=== PATIENT | female | born 1955 | race Native Hawaiian/Other Pacific Islander ===

== ENCOUNTER 2016-07-25 13:53 | Outpatient (CLI) | payer BC, OTHER | END 2016-07-25 15:00 | disposition home or self-care (01) | LOC: RESP 13:53 | DX: R06.02 Shortness of breath (principal) ==

== ENCOUNTER 2017-09-14 10:49 | Outpatient (CLI) | payer BC, OTHER ==
[2017-09-14 11:14] LABS: PLATELET COUNT 139 K/uL (152-353)
[2017-09-14 11:25] LABS: POTASSIUM 4.1 mmol/L (3.6-5.2)
== END 2017-09-14 19:38 | disposition home or self-care (01) ==
LOC: LAB 10:49
PROVIDERS: Emergency Medicine Undersea and Hyperbaric Medicine
DX: S80.01XD Contusion of right knee, subsequent encounter (principal); E11.628 Type 2 diabetes mellitus with other skin complications
CPT/HCPCS: 80053; 80202; 85027; 85651

== ENCOUNTER 2020-04-04 13:01 | Outpatient (CLI) | payer BC, OTHER | END 2020-04-04 19:41 | disposition home or self-care (01) | LOC: INF 13:01 | PROVIDERS: ATTEND Internal Medicine Endocrinology, Diabetes & Metabolism | DX: Z23 Encounter for immunization (principal) | CPT/HCPCS: 96372 ==

== ENCOUNTER 2020-05-01 15:19 | Outpatient (CLI) | payer BC, OTHER | END 2020-05-01 21:58 | disposition home or self-care (01) | LOC: INF 15:19 | PROVIDERS: ATTEND Internal Medicine | DX: Z23 Encounter for immunization (principal) | CPT/HCPCS: 96372 ==

== ENCOUNTER 2021-11-20 14:37 | Outpatient (CLI) | payer BC, OTHER | END 2021-11-20 19:35 | disposition home or self-care (01) | LOC: RAD 14:37 | PROVIDERS: ATTEND Nurse Practitioner Family | DX: E55.9 Vitamin D deficiency, unspecified (principal); E56.8 Deficiency of other vitamins; M47.816 Spondylosis without myelopathy or radiculopathy, lumbar region; M85.89 Other specified disorders of bone density and structure, multiple sites; Z79.899 Other long term (current) drug therapy ==